=== PATIENT | female | born 1965 | race Caucasian/White ===

== ENCOUNTER 2017-03-18 09:31 | Inpatient (IN) | payer BC ==
--- NOTE | ~2017-03-18 | HP ---
Unit #: [id number] #: [id number] Patient: SIA BURNETT [id number] [address] [place], [place] [address] [id number] I MR#: [id number] NAME: SIA BURNETT ROOM: 45 Age: 51 Sex: F Admission Date: 03/18/2017 : 1965 Attending Physician: Miri Cm M.D. Referring Physician: Miri Cm M.D. Primary Care Physician: Generic Doctor Not In System HISTORY AND PHYSICAL DATE OF ADMISSION 03/18/2017 CHIEF COMPLAINT Right foot and ankle pain and deformity. HISTORY OF PRESENT ILLNESS This 51-year-old female has a significant right foot deformity secondary to posterior tibial tendon dysfunction and also has right ankle arthritis. She now has a stage 4 posterior tibial tendon dysfunction with deltoid ligament instability. She is therefore admitted for right foot triple arthrodesis, deltoid ligament reconstruction and gastrocnemius recession. The plan is to proceed with ankle replacement in approximately six months. PAST MEDICAL HISTORY Remarkable for: Vitamin B12 deficiency. HOME MEDICATIONS 1. Aspirin. 2. Vitamin B12. 3. Vitamin D. ALLERGIES Celebrex. SOCIAL HISTORY She denies smoking. She is . She is an active cyclist. She works as an emergency room nurse. REVIEW OF SYSTEMS Unremarkable. PHYSICAL EXAMINATION HEIGHT: 5 feet 5 inches WEIGHT: 170 pounds GENERAL: This is a well-developed, well-nourished female in no acute distress. HEENT: Pharynx is clear. NECK: Supple without masses. HEART: Regular sinus rhythm without murmurs or gallops. LUNGS: Clear. ABDOMEN: Soft and nontender without masses or organomegaly. RIGHT FOOT: Pes abducto planovalgus deformity with loss of the arch and abnormal too many toe sign. She is unable to do a single heel rise on the Unit #: [id number] #: [id number] Patient: SIA BURNETT. The right heel is in 20 degrees of valgus. Pulses are normal. Motor exam is normal with the exception of inability to invert the hindfoot. DIAGNOSTIC STUDIES IMAGING: Standing right ankle x-rays show 15 degree of tibiotalar valgus. MRI shows a tear of the posterior tibial tendon along with a deep deltoid ligament tear. Standing right foot radiographs show 50% uncovering of the talonavicular joint with a negative Meary's angle. ADMISSION DIAGNOSIS Stage 4 right posterior tibial tendon dysfunction. PLAN The patient is admitted for right foot triple arthrodesis, deltoid ligament reconstruction, and possible Cotton procedure. This procedure was described along with the risks of bleeding, infection, nerve damage, need for further surgery in the future, prolonged recovery time, deep venous thrombosis, pulmonary embolism and anesthetic complications. She understands the above risks and agrees to proceed with the treatment plan. She understands she will have to be nonweightbearing 3 months postoperatively. Dictated by Yenifer Arevalo/thomas TD: 03/17/2017 21:06 JOB #: [id number] HISTORY AND PHYSICAL Page 1 of 1 X Nathalie Cm MD X HISTORY AND PHYSICAL
--- NOTE | ~2017-03-18 | DS ---
Unit #: [id number] #: [id number] Patient: SIA BURNETT [id number] [address] [address] [id number] I MR#: [id number] NAME: SIA BRUNETT ROOM: 45 Age: 51 Sex: F Admission Date: 03/18/2017 : 1965 Discharge Date: 03/20/2017 Attending Physician: Miri Cm M.D. Referring Physician: Miri Cm M.D. Primary Care Physician: Generic Doctor Not In System DISCHARGE SUMMARY CHIEF COMPLAINT Right foot and ankle pain and deformity. HISTORY OF PRESENT ILLNESS This is a pleasant 51-year-old female with a significant right foot deformity. She has a substantial right ankle arthritis and posterior tibial tendon dysfunction with medial deltoid ligament instability. She is admitted for reconstructive surgery consisting of triple arthrodesis with deltoid ligament reconstruction. HOSPITAL COURSE The patient was admitted on 03/18 for right foot triple arthrodesis with deltoid ligament reconstruction and gastrocnemius recession. She underwent the procedure on 03/18 without any complications, subsequently back to the med/surg floor and rounded on daily. Her vital signs were found to be stable. Her pain was under control. She was able to successfully work with physical therapy with a gait assistive device. On the second postoperative day, dressing was removed. The incisions were all well coapted and healed with some minimal drainage. She had minimal swelling and her pain was minimal as well. She was deemed acceptable for discharge home. FINAL DIAGNOSIS Right foot and ankle pain with ankle arthritis and posterior tibial tendon dysfunction now status post right foot triple arthrodesis with deltoid ligament repair and gastrocnemius recession. OPERATION DATE 03/18/2017 OPERATION PERFORMED Right foot triple arthrodesis with deltoid ligament repair and gastrocnemius recession. DISPOSITION Discharge home. DISCHARGE CONDITION Stable. RECOMMENDATIONS 1. The patient is going to be discharged home today. Her was with her today and will be caring for her at home. She understands she needs to keep the dressing clean and dry until her followup visit. Unit #: [id number] #: [id number] Patient: SIA BURNETT 2. She will be discharged on her home medications with the addition of Xarelto 10 mg p.o. daily for DVT prophylaxis and Percocet 5/325 mg #50 two tabs q.6 hours p.r.n. pain. 3. Nonweightbearing right lower extremity. 4. Followup in 10 to [address] Hong Cm for suture removal and short leg cast placement. She was encouraged to call the office with any concerns in the intervening time including severely increased bleeding or pain. Dictated by... Crescencio Siegel M.D. for Miri Cm M.D. BRANDON/keny TD: 03/20/2017 12:51 JOB #: [id number] DISCHARGE SUMMARY Page 1 of 1 X X DISCHARGE SUMMARY
--- NOTE | ~2017-03-18 | OR ---
Unit #: [id number] #: [id number] Patient: SIA BURNETT [id number] [address] [place], [place] [address] [id number] I MR#: [id number] NAME: SIA BURNETT ROOM: 452 Date of Procedure: 03/18/2017 Admission Date: 03/18/2017 Surgeon: Miri Cm M.D. : 1965 Attending Physician: Miri Cm M.D. Referring Physician: Miri Cm M.D. Primary Care Physician: Generic Doctor Not In System OPERATIVE REPORT PREOPERATIVE DIAGNOSES 1. Stage IV right posterior tibial tendon tear. 2. Right ankle equinus. 3. Right ankle arthritis. 4. Right ankle deltoid ligament insufficiency. POSTOPERATIVE DIAGNOSES 1. Stage IV right posterior tibial tendon tear. 2. Right ankle equinus. 3. Right ankle arthritis. 4. Right ankle deltoid ligament insufficiency. PROCEDURES PERFORMED 1. Right foot triple arthrodesis (94235). 2. Right deltoid ligament reconstruction using allograft tendon (42759). 3. Right cotton procedure (dorsal opening wedge osteotomy of medial cuneiform) (66172). 4. Right gastrocnemius recession (67012). ASSISTANTS Vero. ANESTHESIA General and popliteal saphenous block. INDICATIONS FOR SURGERY The patient is a 51-year-old female with stage IV right posterior tibial tendon dysfunction. She has a posterior tibial tendon tear proven by MRI. She has weakness of inversion and inability to do a single heel rise. She has severe pes abducto planovalgus with ankle arthritis and ankle valgus measuring 20 degrees at the tibiotalar joint. MRI also documented and confirms her clinical diagnosis of deltoid ligament insufficiency. She is therefore to undergo a right foot triple arthrodesis and deltoid ligament reconstruction in preparation for ankle replacement 6 months later. DESCRIPTION OF PROCEDURE The patient underwent right popliteal saphenous block. She was taken to the operating room and placed in supine position and general anesthetic was induced. The right leg was identified as the correct operative location during the time-out procedure. The IV antibiotic protocol was followed. The right leg was then prepped and draped in the usual sterile fashion. The leg was exsanguinated and the thigh tourniquet inflated to Unit #: [id number] #: [id number] Patient: SIA BURNETT 300 mmHg. A lateral longitudinal incision was made over the sinus tarsi ending at the fourth metatarsal base. The subcutaneous tissue was divided. The sinus tarsi was opened and the subtalar joint was distracted with a laminar prescription clerk. The power osteotome, curved curettes, and rongeurs were utilized to remove the articular cartilage from both sides of the subtalar joint. The underlying subchondral bone was feathered with the power osteotome. The calcaneocuboid joint was then exposed subperiosteally. The power osteotome, curved curettes, and rongeurs were utilized to remove the articular cartilage from both sides of the calcaneocuboid joint. The underlying subchondral bone was feathered with the power osteotome. A medial longitudinal incision was then made over the posterior tibial tendon sheath beginning proximal and posterior to the medial malleolus and ending at the navicular tuberosity. The subcutaneous tissue was divided. The posterior tibial tendon sheath was opened. There was a significant tear of the posterior tibial tendon and the posterior tibial tendon was excised. The talonavicular joint was exposed with subperiosteal dissection. The power osteotome, curved curettes, and rongeurs were utilized to remove the articular cartilage from both sides of the talonavicular joint. A 6 mL of Augment platelet-derived growth factor were placed into the subtalar joint, talonavicular joint, and calcaneocuboid joint. The subtalar joint was then reduced and fixated with an Arthrex 6.7 mm diameter cannulated screw placed from the posterior inferior heel into the talar neck. Excellent fixation was achieved. The talonavicular joint was then reduced and then fixated with two Arthrex 4.5 mm diameter cannulated screws placed from distal to proximal. The calcaneocuboid joint was then reduced and fixated with one Arthrex 4.5 mm diameter cannulated screw placed from distal to proximal. The hindfoot was corrected to about 2 degrees of valgus, but the forefoot rested in approximately 15 degrees of varus, therefore cotton procedure was required. A dorsal longitudinal incision was made over the medial cuneiform. Subcutaneous tissue was divided. The medial cuneiform was exposed with subperiosteal dissection. A K-wire was then drilled in a center-center position into the medial cuneiform and position was validated with mini C-arm fluoroscopy. The guide pin was then used as a guide for the microsagittal saw to make an osteotomy from dorsal to plantar in the midportion of the medial cuneiform. The osteotomy was opened with the power osteotome and then fixated with a [employer] 6.5 mm diameter BIOFOAM wedge. No additional fixation was utilized. The ankle rested in 20 degrees of equinus, therefore a gastrocnemius recession was required. A 4 cm medial longitudinal incision was made over the mid calf. Subcutaneous tissue was divided. The deep muscle fascia was opened. The gastrocnemius fascia was then cut transversely and the ankle dorsiflexion improved to 10 degrees of ankle dorsiflexion. The Arthrex deltoid ligament reconstruction system was utilized. A peroneal tendon allograft was then cut to 15 cm in length. The spade tipped drill pin was then used and entered the intercollicular groove of the medial malleolus and was drilled 5 cm out of the anterolateral tibial cortex. The tendon graft was placed through the white suture loop and passed into the bone tunnel and the TightRope suture was deployed and the bracket rested firmly against the side of the anterolateral tibial shaft. Unit #: [id number] #: [id number] Patient: SIA BURNETT A guide pin was then drilled into the talar insertion site of the deep deltoid ligament 12 mm posterior to the anteromedial cartilage of the talus. This was overdrilled with a 5 mm diameter drill bit. The free end of the tendon was then whipstitched and placed into this hole and fixated with an Arthrex 5 mm diameter suture anchor. The sustentaculum mauricio was then identified and a drill guide pin was placed into the center of the sustentaculum and drilled posteriorly and inferiorly off the lateral aspect of the calcaneal body. The graft was measured and the free end of the graft was then whipstitched and placed into the tunnel and guided into the tunnel and fixated with an Arthrex interference screw. Finally, the TightRope in the anterolateral distal tibia was shuttled until the graft was firmly tensioned. The two limbs of the deltoid ligament graft was satisfactorily taut. The deep tissues were closed with 2-0 Vicryl. Subcutaneous tissue was closed with 3-0 Vicryl. Skin was closed with 3-0 nylon horizontal mattress sutures. Xeroform gauze, dressing, sponges, Webril, and a posterior fiberglass splint were applied. The patient was then transported to the recovery room in stable condition. ESTIMATED BLOOD LOSS Minimal. COMPLICATIONS None. SPECIMENS None. TOURNIQUET TIME 2 hours 20 minutes. PLAN The patient will return to the operating room in 6 months for ankle replacement. Dictated by.Yenifer Gutierrez/pradeep TD: 03/19/2017 05:38 JOB #: [id number] OPERATIVE REPORT Page 1 of 1 X Nathalie Cm MD X PROCEDURE OPERATIVE NOTE
[~2017-03-18 09:31] MED LIST: ASPIRIN ENTERI325 M1 PO; VITAMIN B125000 MCG PO; VITAMIN D1000 UNIT PO
[2017-03-20] MEDS ORDERED: XARELTO10 MG PO (10:09)
[2017-03-20] MEDS ORDERED: PERCOCET5/325 PO (10:09)
== END 2017-03-20 13:55 | disposition home or self-care (01) | DRG 502 ==
LOC: CSUR 09:31 → CPACUOF 09:47 → C4B 17:57
PROVIDERS: Orthopaedic Surgery
PROC: 0SGH04Z Fusion of Right Tarsal Joint with Internal Fixation Device, Open Approach (ICD-10-PCS; 2017-03-18)
PROC: 0SGH04Z Fusion of Right Tarsal Joint with Internal Fixation Device, Open Approach (ICD-10-PCS; 2017-03-18)
PROC: 0QBL0ZZ Excision of Right Tarsal, Open Approach (ICD-10-PCS; 2017-03-18)
PROC: 0L8N0ZZ Division of Right Lower Leg Tendon, Open Approach (ICD-10-PCS; 2017-03-18)
PROC: 0SGH04Z Fusion of Right Tarsal Joint with Internal Fixation Device, Open Approach (ICD-10-PCS; principal; 2017-03-18 12:00)
PROC: 0LU Tendons, Supplement (ICD-10-PCS; 2017-03-18 12:00)
DX: M25.371 Other instability, right ankle (principal); G47.33 Obstructive sleep apnea (adult) (pediatric); Z79.82 Long term (current) use of aspirin; M19.071 Primary osteoarthritis, right ankle and foot; S96.911A Strain of unspecified muscle and tendon at ankle and foot level, right foot, initial encounter; Z90.710 Acquired absence of both cervix and uterus
CPT/HCPCS: 97116; 97161; 97530; C1713; J0690; J2250; J2270; J2405; J2710; J2795; J3010